=== PATIENT | female | born 1940 | race Hispanic/Latino ===

== ENCOUNTER → 2021-12-06 | Outpatient (CLI) | payer MEDICARE | LOC: CT 16:52 | PROVIDERS: ATTEND Family Medicine | DX: S00.93XA Contusion of unspecified part of head, initial encounter (principal) | CPT/HCPCS: 70450 ==

== ENCOUNTER 2022-01-26 13:40 | Emergency (ER) | payer MEDICARE ==
[~2022-01-26] VITALS: Ht 154.9 cm; Wt 74.8 kg
[2022-01-26] MEDS ORDERED: KETOROLAC TROMETHAMINE 30 MG/ML VIAL IM STA (14:02)
[2022-01-26] MEDS ORDERED: DEXAMETHASONE SOD PHOS 10 MG/1 ML VIAL IM ONE (14:15)
== END 2022-01-26 15:39 | disposition home or self-care (01) ==
LOC: ER 13:44
DX: R50.9 Fever, unspecified (principal); U07.1 COVID-19; J02.9 Acute pharyngitis, unspecified; I10 Essential (primary) hypertension; E11.9 Type 2 diabetes mellitus without complications; E78.5 Hyperlipidemia, unspecified
CPT/HCPCS: 83518; 87070; 99283; J1100; J1885; U0002

== ENCOUNTER 2022-04-06 08:03 | Emergency (ER) | payer MEDICARE ==
[~2022-04-06] VITALS: Ht 154.9 cm; Wt 74.8 kg
[2022-04-06] MEDS ORDERED: ACETAMINOPHEN 325 MG TAB PO PRN (08:30)
[2022-04-06 10:04] LABS: CLARITY,URINE CLEAR (CLEAR); COLOR,URINE YELLOW (YELLOW); KETONES,URINE NEGATIVE (NEGATIVE); LEUKOCYTE ESTERASE ,URINE NEGATIVE (NEGATIVE); NITRITE,URINE NEGATIVE (NEGATIVE); PROTEIN,URINE DIPSTICK NEGATIVE (NEGATIVE); URINE UROBILINOGEN 0.2 mg/dL (0.2 - 1)
[2022-04-06 10:14] LABS: BACTERIA,URINE RARE /HPF
== END 2022-04-06 11:43 | disposition home or self-care (01) ==
LOC: ER 08:10
DX: B34.9 Viral infection, unspecified (principal); I10 Essential (primary) hypertension; E11.9 Type 2 diabetes mellitus without complications; Z20.822 Contact with and (suspected) exposure to COVID-19; Z88.3 Allergy status to other anti-infective agents
CPT/HCPCS: 81001; 99282; U0002

== ENCOUNTER 2025-05-11 12:58 | Emergency (ER) | payer MEDICARE ==
[~2025-05-11] VITALS: Ht 154.9 cm; Wt 74.8 kg
[2025-05-11 16:37] VITALS: PULSE 74; RESP 17; TEMP 97.2; O2SAT 98
== END 2025-05-11 16:41 | disposition home or self-care (01) ==
LOC: FSED 14:16
DX: S00.83XA Contusion of other part of head, initial encounter (principal); S16.1XXA Strain of muscle, fascia and tendon at neck level, initial encounter; W01.0XXA Fall on same level from slipping, tripping and stumbling without subsequent striking against object, initial encounter; Y93.01 Activity, walking, marching and hiking; Y92.89 Other specified places as the place of occurrence of the external cause; I10 Essential (primary) hypertension; E11.9 Type 2 diabetes mellitus without complications; E78.5 Hyperlipidemia, unspecified
CPT/HCPCS: 70450; 72125; 99284